=== PATIENT | female | born 1940 | race Caucasian/White ===

== ENCOUNTER → 2017-10-20 | Outpatient (CLI) | payer MEDICARE | END | disposition home or self-care (01) | LOC: CFH 08:34 | PROVIDERS: ATTEND Registered Nurse | DX: R91.1 Solitary pulmonary nodule (principal) | CPT/HCPCS: 71250 ==

== ENCOUNTER 2018-05-31 07:19 | Inpatient (IN) | payer MEDICARE ==
[~2018-05-31] VITALS: Ht 160 cm; Wt 84.4 kg
[~2018-05-31 07:19] MED LIST: ALBU8.5H8 INH; CHOL500015 PO; EPINEPHRINE 1 MG/ML, 1ML ONE; FEXO180T15 PO; KETOROLAC 60 MG/2 ML ONE; LOSA1TAB19 PO; MULT-717 PO; ROPIvacaine/PF 0.2%, 20 ML ONE; TIOT4MIS3 INH; TRANEXAMIC ACID 100 MG/ML, 10ML ONE; VITA1TAB86 PO
[2018-05-31] MEDS ORDERED: LACTATED RINGERS 1,000 ML IV SCH (07:32)
[2018-05-31] MEDS ORDERED: VANCOMYCIN PER PHARMACY MC STA (07:45)
[2018-05-31] MEDS ORDERED: PHARMACOKINETIC CONSULTATION MC ONE (08:00)
[2018-05-31] MEDS ORDERED: GABAPENTIN 300 MG CAPSULE PO ONE (08:00)
[2018-05-31] MEDS ORDERED: ACETAMINOPHEN 500 MG TABLET PO ONE (08:00)
[2018-05-31] MEDS ORDERED: FENTANYL PF 250 MCG/5ML ONE (08:22)
[2018-05-31] MEDS ORDERED: ROCURONIUM 10MG/ML,5ML ONE (08:23)
[2018-05-31] MEDS ORDERED: PROPOFOL 10 MG/ML, 20ML ONE (08:23)
[2018-05-31] MEDS ORDERED: GLYCOPYRROLATE 0.4 MG/2 ML, 2ML ONE (08:24)
[2018-05-31] MEDS ORDERED: NEOSTIGMINE 1 MG/ML, 10ML ONE (08:24)
[2018-05-31] MEDS ORDERED: DEXAMETHASONE 4 MG/ML, 1ML ONE ×2 (08:24)
[2018-05-31] MEDS ORDERED: SODIUM CHLORIDE 0.9% PF 10ML ONE (08:25)
[2018-05-31] MEDS ORDERED: ONDANSETRON 2MG/ML, 2ML ONE (08:25)
[2018-05-31] MEDS ORDERED: CEFAZOLIN 1,000 MG ONE ×2 (08:25)
[2018-05-31] MEDS ORDERED: VANCOMYCIN 1,600 MG in SODIUM CHLORIDE 0.9% 250 ML IV ONE (08:30)
[2018-05-31] MEDS ORDERED: MIDAZOLAM 1 MG/ML, 2ML ONE (09:22)
[2018-05-31] MEDS ORDERED: hydrALAzine 20 MG/ML, 1ML IV PRN (09:30)
[2018-05-31] MEDS ORDERED: OXYcodone 5 MG/5 ML ORAL.SOL UDC PO PRN (09:30)
[2018-05-31] MEDS ORDERED: FENTANYL PF 100 MCG/2ML IV PRN (09:30)
[2018-05-31] MEDS ORDERED: ALBUTEROL/IPRATROPIUM 2.5MG/0.5MG, 3 ML NPPB PRN (09:30)
[2018-05-31] MEDS ORDERED: MORPHINE SULFATE 4 MG/ML, 1ML IVPush PRN (09:30)
[2018-05-31] MEDS ORDERED: PROMETHAZINE 25 MG/ML, 1ML IV PRN (09:30)
[2018-05-31] MEDS ORDERED: ONDANSETRON ODT 8 MG PO PRN (09:30)
[2018-05-31] MEDS ORDERED: LABETALOL 5MG/ML, 20ML IV PRN (09:30)
[2018-05-31] MEDS ORDERED: MEPERIDINE/PF 25MG/0.5ML IVPush PRN (09:30)
[2018-05-31] MEDS ORDERED: PROMETHAZINE 25 MG SUPP PR PRN (09:30)
[2018-05-31] MEDS ORDERED: ONDANSETRON 2MG/ML, 2ML IV PRN ×2 (09:30→10:00)
[2018-05-31] MEDS ORDERED: PROMETHAZINE 12.5 MG SUPP PR PRN (09:30)
[2018-05-31] MEDS ORDERED: ALBUTEROL SULFATE 2.5 MG/3 ML NPPB PRN (09:30)
[2018-05-31] MEDS ORDERED: PROMETHAZINE 25 MG/ML, 1ML IM PRN ×3 (09:30→10:00)
[2018-05-31] MEDS ORDERED: PHENYLEPHRINE 10 MG/ML ONE (09:54)
[2018-05-31] MEDS ORDERED: ACETAMINOPHEN 650 MG/20.3 ML UDC PO PRN (10:00)
[2018-05-31] MEDS ORDERED: MAGNESIUM HYDROXIDE 8%, 30ML UDC PO PRN (10:00)
[2018-05-31] MEDS ORDERED: CEFAZOLIN PMX 1GM/50ML 50 ML IVPB SCH (10:00)
[2018-05-31] MEDS ORDERED: SENNA/DOCUSATE TABLET PO PRN (10:00)
[2018-05-31] MEDS ORDERED: OXYcodone IR 5MG TABLET PO PRN (10:00)
[2018-05-31] MEDS ORDERED: DIPHENHYDRAMINE 50 MG CAPSULE PO PRN (10:00)
[2018-05-31] MEDS ORDERED: VANCOMYCIN PMX 1GM/200ML 200 ML IVPB SCH (10:00)
[2018-05-31] MEDS ORDERED: ONDANSETRON 4 MG TABLET PO PRN (10:00)
[2018-05-31] MEDS ORDERED: HYDROmorphone 1 MG/ML, 1ML IV PRN (10:00)
[2018-05-31] MEDS ORDERED: ALUMINUM/MAG/SIMETHICONE 30 ML UDC PO PRN (10:00)
[2018-05-31] MEDS ORDERED: TRANEXAMIC ACID 1,000 MG in SODIUM CHLORIDE 0.9% 100 ML IVPB ONE (11:00)
[2018-05-31] MEDS ORDERED: OXYcodone 5 MG/5 ML ORAL.SOL UDC ONE (11:46)
[2018-05-31] MEDS ORDERED: HYDROmorphone 2 MG/ML, 1ML ONE (11:46)
[2018-05-31] MEDS: HYDROmorphone 1 MG/ML, 1ML IV PRN ×3 (11:50→12:29)
[2018-05-31 14:00] VITALS: BP 106/52
[2018-05-31] MEDS ORDERED: VANCOMYCIN PMX 1GM/200ML 200 ML IVPB ONE ×2 (14:30→22:00)
[2018-05-31] MEDS: D5%-0.45NACL+KCL 20MEQ 1,000 ML IV SCH (15:16)
[2018-05-31] MEDS: CEFAZOLIN PMX 1GM/50ML 50 ML IVPB SCH (18:28)
[2018-05-31] MEDS: ASPIRIN 81 MG TABLET EC PO SCH (18:28)
[2018-05-31 20:00] VITALS: BP 100/60
[2018-05-31] MEDS: DOCUSATE 100 MG CAPSULE PO SCH (22:04)
[2018-05-31 23:09] VITALS: BP 101/63
[2018-06-01] MEDS: D5%-0.45NACL+KCL 20MEQ 1,000 ML IV SCH (00:59)
[2018-06-01] MEDS: CEFAZOLIN PMX 1GM/50ML 50 ML IVPB SCH (02:09)
[2018-06-01 03:23] VITALS: BP 95/60
[2018-06-01] MEDS: ASPIRIN 81 MG TABLET EC PO SCH (05:33)
[2018-06-01] MEDS ORDERED: DEXAMETHASONE 4 MG/ML, 1ML IVPush SCH (06:00)
[2018-06-01 07:24] VITALS: BP 97/58
[2018-06-01] MEDS: DOCUSATE 100 MG CAPSULE PO SCH (07:53)
[2018-06-01] MEDS ORDERED: TAMSULOSIN 0.4 MG CAP.ER.24H PO SCH (09:00)
[2018-06-01] MEDS ORDERED: KETOROLAC 30 MG/1 ML IV SCH (10:00)
[2018-06-01 10:05] VITALS: BP 111/63
== END 2018-06-01 10:44 | disposition home or self-care (01) | DRG 470 ==
LOC: ORIP 07:19 → 4NOR 13:03
PROVIDERS: ADMIT Orthopaedic Surgery; ATTEND Orthopaedic Surgery
PROC: 0SR906A Replacement of Right Hip Joint with Oxidized Zirconium on Polyethylene Synthetic Substitute, Uncemented, Open Approach (ICD-10-PCS; principal; 2018-05-31 10:00)
DX: M16.11 Unilateral primary osteoarthritis, right hip (principal); Z98.51 Tubal ligation status
CPT/HCPCS: 36415; 72170; 85014; 85018; 86850; 86900; C1713; G0378; J0171; J0690; J1100; J1170; J1885; J2250; J2405; J2704; J2710; J2795; J3010; J3370; C1776; J2370; J3480; J7050